=== PATIENT | male | born 1990 | race African-American/Black ===

== ENCOUNTER 2017-10-07 08:12 | Emergency (ER) | payer OTHER ==
[~2017-10-07] VITALS: Ht 170.2 cm; Wt 74.8 kg
[2017-10-07] MEDS ORDERED: RANITIDINE HCL300 MG (08:27)
[2017-10-07] MEDS ORDERED: PROMETHAZINE HC25 MG (08:28)
[2017-10-07] MEDS ORDERED: OMEPRAZOLE20 MG (08:28)
== END 2017-10-07 17:14 | disposition home or self-care (01) ==
LOC: ER 08:12 → EDSEX 08:17 → ER 17:14
DX: R10.13 Epigastric pain (principal); K29.60 Other gastritis without bleeding